=== PATIENT | male | born 1995 | race Caucasian/White ===

== ENCOUNTER 2017-01-17 19:23 | Emergency (ER) | payer OTHER ==
[~2017-01-17] VITALS: Ht 182.9 cm; Wt 97.5 kg
[2017-01-17 19:29] VITALS: BP_SYST 141
--- NOTE | 2017-01-17 19:35 | NUR ---
Patient to ER bed 05 to gown for evaluation. Side rails up. Report given to Robinson
--- NOTE | 2017-01-17 19:40 | NUR ---
Dr Miranda at bedside to evaluate patient.
--- NOTE | 2017-01-17 19:45 | NUR ---
Patient presents to ED for evaluation of generalized rash, unknown exposure, denies recent change in diet, soap, shampoo, or laundry products. Patient has been seen and evaluated by Dr Miranda-awaiting orders. Will continue to observe and assess.
--- NOTE | 2017-01-17 20:09 | NUR ---
Patient provided with ICE pack for patient comfort. Will contiue to observe and assess. No new orders. Comfort measures offered but declined.
[2017-01-17 20:22] VITALS: BP_SYST 140
--- NOTE | 2017-01-17 20:25 | NUR ---
Patient given written and verbal discharge instructions and verbalizes understanding. ER MD discussed with patient the results and treatment provided. Patient in stable condition. ID arm band removed. Rx of Clindamycin, Benadryl given. Patient educated on pain management and to follow up with PMD. Pain Scale 4. Opportunity for questions provided and answered.
== END 2017-01-17 20:22 | disposition home or self-care (01) ==
LOC: SED 19:23
DX: L03.115 Cellulitis of right lower limb (principal); L03.114 Cellulitis of left upper limb; L03.113 Cellulitis of right upper limb; Z79.82 Long term (current) use of aspirin
CPT/HCPCS: 99283